=== PATIENT | male | born 1980 | race African-American/Black ===

== ENCOUNTER 2018-08-25 08:10 | Emergency (ER) | payer SELFPAY ==
[~2018-08-25] VITALS: Ht 175.3 cm; Wt 74.8 kg
[2018-08-25 08:15] VITALS: BP 115/73
--- NOTE | 2018-08-25 08:25 | Emergency Room Report ---
History of Present Illness General Chief Complaint: Medical Clearance Source: Patient Present Illness HPI The patient is brought in by [place] in custody. Earlier , prior to arrival he was complaining of elbow pain. However he states that has since resolved. He states that he also has is sore in his neck area and feels like a sore muscle. He states he was laying out on the street. He denies recent illness. He denies fever or chills. He denies trauma. He denies headache or blurry vision. He denies chest pain or shortness of breath. He states he doesn't feel that he needs to be here in the emergency department and didn't asked to come. He has no other complaints. Allergies: Coded Allergies: No Known Allergies (Unverified , 08/25/18) Patient History Past Medical History: none, see triage record Reviewed Nursing Documentation: PMH: Agreed; PSxH: Agreed Nursing Documentation-PMH Past Medical History: No Stated History Review of Systems All Other Systems: negative except mentioned in HPI Physical Exam Vital Signs Date Time Temp Pulse Resp B/P (MAP) Pulse Ox O2 Delivery O2 Flow Rate FiO2 08/25/18 08:15 97.3 61 16 115/73 99 Room Air Sp02 EP Interpretation: reviewed, normal General Appearance: no apparent distress, alert, GCS 15, non-toxic Head: normocephalic, atraumatic Eyes: bilateral eye normal inspection, bilateral eye PERRL ENT: hearing grossly normal, normal pharynx, no angioedema, normal voice Neck: full range of motion, supple/symm/no masses, tender lateral Respiratory: no respiratory distress, no retraction, no accessory muscle use, speaking full sentences Gastrointestinal: normal inspection Rectal: deferred Musculoskeletal: back normal, gait/station normal, normal range of motion, non- tender Neurologic: alert, oriented x3, responsive, motor strength/tone normal, sensory intact, speech normal Psychiatric: judgement/insight normal, memory normal, mood/affect normal, no suicidal/homicidal ideation Skin: normal color, no rash, warm/dry, well hydrated Medical Decision Making Diagnostic Impression: Primary Impression: Medical clearance for incarceration ER Course This patient has no emergency medical condition. Medical screening exam and physical exam was performed and there does not require any further evaluation and an emergency department. The patient has nonurgent musculoskeletal complaints. There is no evidence of fracture or compartment syndrome or other medical emergency. The patient is cleared for incarceration. Last Vital Signs Date Time Temp Pulse Resp B/P (MAP) Pulse Ox O2 Delivery O2 Flow Rate FiO2 08/25/18 08:15 97.3 61 16 115/73 99 Room Air Disposition: D/C TO LAW ENFORCEMENT IN [facility] Condition: Stable Scripts No Active Prescriptions or Reported Meds Yvette Diego DO Aug 25, 2018 08:25
[2018-08-25 08:31] VITALS: BP 115/73
[2018-08-26] MEDS ORDERED: IBUPROFEN600 MG ORAL (14:49)
== END 2018-08-25 08:33 ==
LOC: EMR 08:28 → EDBD 08:28 → EMR 08:33
DX: M25.522 Pain in left elbow (principal); M54.2 Cervicalgia; Z02.89 Encounter for other administrative examinations
CPT/HCPCS: 99282

== ENCOUNTER → 2018-08-26 | Emergency (ER) | payer SELFPAY ==
[~2018-08-26] VITALS: Ht 175.3 cm; Wt 72.6 kg
[~2018-08-26] MED LIST: IBUPROFEN600 MG ORAL
[2018-08-26 13:17] VITALS: BP 136/86
--- NOTE | 2018-08-26 13:56 | Emergency Room Report ---
History of Present Illness General Chief Complaint: Medical Clearance Source: Patient Present Illness HPI 37-year-old male with no significant past medical history brought in by [facility] for medical clearance. Patient complains that he fell on his left shoulder as he was walking. Patient denies rolling, any head injury, loss of consciousness, dizziness. Complains of 7 out of 10 pain in left shoulder radiating to the left side of neck. Interestingly numbness. Medication for pain. He denies all other associated symptoms such as SOB, palpitations, chest pain, abdominal pain, although other associated symptoms. He has had cough and unable to move her complete range of motion. Allergies: Coded Allergies: No Known Allergies (Unverified , 08/25/18) Patient History Past Medical History: see triage record Past Surgical History: none Pertinent Family History: unable to obtain Immunizations: UTD Reviewed Nursing Documentation: PMH: Agreed; PSxH: Agreed Nursing Documentation-PMH Past Medical History: No Stated History Review of Systems All Other Systems: negative except mentioned in HPI Physical Exam Vital Signs Date Time Temp Pulse Resp B/P (MAP) Pulse Ox O2 Delivery O2 Flow Rate FiO2 08/26/18 13:17 60 20 Room Air 08/26/18 13:17 97.3 136/86 98 Sp02 EP Interpretation: reviewed, normal General Appearance: normal inspection, well appearing, alert Head: normocephalic, atraumatic Eyes: bilateral eye normal inspection, bilateral eye PERRL ENT: normal ENT inspection, normal pharynx Neck: normal inspection, full range of motion, supple, thyroid normal Respiratory: normal inspection, chest non-tender, normal breath sounds, no rhonchi, no wheezing Cardiovascular #1: normal inspection, no edema, no murmur Cardiovascular #2: 2+ radial (R), 2+ radial (L) Gastrointestinal: normal inspection, non tender, soft Rectal: deferred Genitourinary: deferred Musculoskeletal: digits/nails normal, gait/station normal, normal range of motion, non-tender, swelling - left shoulder Neurologic: normal inspection, alert, oriented x3 Psychiatric: normal inspection, judgement/insight normal, memory normal Skin: normal inspection, normal color, no rash, warm/dry, other - No ecchymosis noted Lymphatic: normal inspection, no adenopathy, axilla node tender (R) Medical Decision Making PA Attestation diagnosis and treatment plans were reviewed and discussed with my supervising physician Dr. Hemphill Diagnostic Impression: Primary Impression: Contusion of left shoulder ER Course 37-year-old male with no significant past medical history brought in by [facility] for medical clearance. Patient complains that he fell on his left shoulder as he was walking. Patient denies rolling, any head injury, loss of consciousness, dizziness. Complains of 7 out of 10 pain in left shoulder radiating to the left side of neck. Interestingly numbness. Medication for pain. He denies all other associated symptoms such as SOB, palpitations, chest pain, abdominal pain, although other associated symptoms. He has had cough and unable to move her complete range of motion. Ddx considered but are not limited to Left shoulder contusion, left shoulder sprain, fracture Vital signs: are WNL, pt. is afebrile H&PE are most consistent with and she is left shoulder ORDERS: x-ray complete left shoulder, ibuprofen 600 ED INTERVENTIONS: None required at this time. DISCHARGE: At this time pt. is stable for d/c to home. Will provide printed patient care instructions, and any necessary prescriptions. Care plan and follow up instructions have been discussed with the patient prior to discharge. RICE guidelines given to pt. pt cleared Other X-Ray Diagnostic Results Other X-Ray Diagnostic Results : X-Ray ordered: L shoulder # of Views/Limited Vs Complete: 2 View Indication: Swelling EP Interpretation: Yes PA Xray: Interpretation reviewed, by supervising MD, and agrees with findings. Interpretation: no dislocation, no soft tissue swelling, no fractures Impression: No acute disease Electronically Signed by: Xena Pizarroibkatiana Text COMPARISON: No relevant prior studies available. FINDINGS: Bones/joints: No acute fracture. Soft tissues: No radiodense foreign body. IMPRESSION: No fracture or dislocation. Last Vital Signs Date Time Temp Pulse Resp B/P (MAP) Pulse Ox O2 Delivery O2 Flow Rate FiO2 08/26/18 13:17 97.3 60 20 136/86 98 Room Air Disposition: D/C TO LAW ENFORCEMENT IN [facility] Condition: Stable Scripts Ibuprofen* (MOTRIN*) 600 Mg Tablet 600 MG ORAL Q8H PRN for For Pain, #20 TAB 0 Refills Prov: Xena Gomez 08/26/18 Referrals: NOT CHOSEN IPA/,REFERRING (PCP) Patient Instructions: Contusion, [id number], Shoulder Pain, [id number] Additional Instructions: medication as directed, elevate affected area, alternating between icing and heating Xena Gomez Aug 26, 2018 13:56
--- NOTE | 2018-08-26 14:39 | Diagnostic Imaging Report ---
EXAM: XR Left Shoulder Complete, 2 or More Views CLINICAL HISTORY: TRAUMA TECHNIQUE: Two or more views of the left shoulder. COMPARISON: No relevant prior studies available. FINDINGS: Bones/joints: No acute fracture. Soft tissues: No radiodense foreign body. IMPRESSION: No fracture or dislocation.
[2018-08-26 14:57] VITALS: BP 130/86
== END | disposition home or self-care (01) ==
LOC: EMR 13:27
DX: S40.012A Contusion of left shoulder, initial encounter (principal); W19.XXXA Unspecified fall, initial encounter; Y92.9 Unspecified place or not applicable; M54.2 Cervicalgia
CPT/HCPCS: 99283